=== PATIENT | male | born 1970 | race Hispanic/Latino ===

== ENCOUNTER 2018-07-03 07:08 | Emergency (ER) | payer SELFPAY ==
[~2018-07-03] VITALS: Ht 175.3 cm; Wt 136.5 kg
[2018-07-03] MEDS ORDERED: LIDOCAINE HCL 2% 20ML ONE (07:41)
[2018-07-03] MEDS ORDERED: LIDOCAINE HCL/EPINEPHRINE 50 ML VIAL IJ SCH (08:15)
== END 2018-07-03 08:13 | disposition home or self-care (01) ==
LOC: EDH 07:08
DX: L02.811 Cutaneous abscess of head [any part, except face] (principal); L04.0 Acute lymphadenitis of face, head and neck; Z72.0 Tobacco use
CPT/HCPCS: 10060; 99283; J3490